=== PATIENT | female | born 1945 | race African-American/Black ===

== ENCOUNTER 2023-08-01 07:04 | Day surgery (SDC) | payer OTHER ==
[2023-08-01 07:39] VITALS: BMI 30.8
[2023-08-01 09:36] VITALS: RESP 18; TEMP 97
[2023-08-01 09:40] VITALS: BP 118/64; PULSE 73
== END 2023-08-01 10:02 | disposition home or self-care (01) ==
LOC: FASU-ENDO 07:04
PROVIDERS: ATTEND Internal Medicine Gastroenterology
PROC: 0DJD8ZZ Inspection of Lower Intestinal Tract, Via Natural or Artificial Opening Endoscopic (ICD-10-PCS; principal; 2023-08-01 09:03)
DX: Z12.11 Encounter for screening for malignant neoplasm of colon (principal); K57.30 Diverticulosis of large intestine without perforation or abscess without bleeding; Z80.0 Family history of malignant neoplasm of digestive organs; Z83.719 Family history of colon polyps, unspecified
CPT/HCPCS: 82962